=== PATIENT | male | born 1960 ===

== ENCOUNTER 2024-02-15 20:00 | Emergency (ER) | payer OTHER ==
[2024-02-15] MEDS ORDERED: Naloxone 0.4 MG/ML SDV IVPUSH PRN (20:12)
[2024-02-15] MEDS: Ondansetron 4 MG/2 ML SDV IVPUSH ONE (20:18)
[2024-02-15] MEDS: Morphine 2 MG/ML SYRINGE IVPUSH ONE ×2 (20:18→20:38)
[2024-02-15] MEDS: Sodium Chloride 0.9% 10 ML Syringe FLUSH PRN (20:19)
[2024-02-15 20:22] LABS: BASOPHILS ABSOLUTE AUTO 0.04 K/uL (0.00-0.20); BASOPHILS PERCENT AUTO 0.2 % (0.0-2.0); EOSINOPHILS ABSOLUTE AUTO 0.11 K/uL (0.00-0.50); EOSINOPHILS PERCENT AUTO 0.6 % (0.0-5.0); HEMATOCRIT 48.2 % (39.0-49.0); HEMOGLOBIN 16.7 g/dL (13.1-16.8); LYMPHOCYTES ABSOLUTE AUTO 1.91 K/uL (0.50-3.50); LYMPHOCYTES PERCENT AUTO 10.2 % (10.0-50.0); MEAN CORPUSCULAR HGB CONC 34.6 g/dL (31.7-36.0); MEAN CORPUSCULAR VOLUME 83.7 fL (84.0-98.0); MONOCYTES ABSOLUTE AUTO 1.18 K/uL (0.00-1.00); MONOCYTES PERCENT AUTO 6.3 % (2.0-14.0); NEUTROPHILS ABSOLUTE AUTO 15.48 K/uL (1.40-7.00); NEUTROPHILS PERCENT AUTO 82.7 % (45.0-80.0); PLATELET COUNT,PLT 248 K/uL (150-350); RED BLOOD CELL COUNT 5.76 M/uL (4.33-5.41); RED CELL DISTRIBUTION WIDTH 14.8 % (11.2-14.1); WHITE BLOOD CELL COUNT,WBC 18.7 K/uL (4.0-10.2)
[2024-02-15 20:36] LABS: BLOOD UREA NITROGEN,BUN 14 mg/dL (7-18); CHLORIDE,CL 98 mmol/L (98-107); CREATININE 1.17 mg/dL (0.51-1.17); GLUCOSE RANDOM 141 mg/dL (70-99); LIPASE 25 U/L (16-77); POTASSIUM,K 3.6 mmol/L (3.5-5.1); SODIUM,NA 135 mmol/L (136-145)
[2024-02-15 20:36] LABS: APPEARANCE,URINE CLEAR; BILIRUBIN,URINE NEGATIVE (NEGATIVE); COLOR,URINE YELLOW; GLUCOSE,URINE NEGATIVE (NEGATIVE); KETONES,URINE NEGATIVE (NEGATIVE); LEUKOCYTE ESTERASE,URINE TRACE (NEGATIVE); NITRITE,URINE NEGATIVE (NEGATIVE); OCCULT BLOOD,URINE SMALL (NEGATIVE); PROTEIN,URINE NEGATIVE (NEGATIVE); UROBILINOGEN,URINE 0.2 E.U./dL (0.2-1.0)
[2024-02-15 20:42] LABS: ANION GAP 13.6 meq/L (7-15); ESTIMATED GFR 70 mL/min (>=60)
[2024-02-15 20:47] LABS: AMORPHOUS SEDIMENT,URINE MODERATE /HPF (0/HPF); BACTERIA,URINE MODERATE /HPF (NONE TO FEW); EPITHELIAL CELLS,URINE FEW /LPF; MUCUS,URINE FEW /LPF (NEGATIVE); RBC,URINE 0-5 /HPF
[2024-02-15] MEDS: Iopamidol 612 MG/ML 100 ML Bottle IVPUSH ONE (20:58)
[2024-02-15] MEDS: Sodium Chloride 0.9% 1,000 ML IV ONE (21:03)
[2024-02-15] MEDS: Ketorolac 30 MG/ML SDV IVPUSH ONE (21:06)
[2024-02-15] MEDS: HYDROmorphone 0.5 MG/0.5 ML Syringe IVPUSH ONE ×2 (21:18→21:43)
[2024-02-15] MEDS: cefTRIAXone 2 GM Vial IVPUSH ONE (22:19)
[2024-02-15] MEDS: metroNIDAZOLE/Normal Saline 500 MG in Premix Bag 1 BAG IV ONE (22:20)
[2024-02-15] MEDS: Sodium Chloride 0.9% 250 ML IV SCH (22:22)
[2024-02-15] MEDS: Ondansetron 4 MG Tab.DIS PO ONE (22:29)
[2024-02-15] MEDS: Acetaminophen/oxyCODONE 325-5 MG Tab PO ONE (22:29)
[2024-02-15] MEDS: oxyCODONE 5 MG Tab PO ONE (22:30)
== END 2024-02-15 22:55 | disposition home or self-care (01) ==
LOC: LL.ED 20:00 → MERGE 20:00 → EDBD 20:00 → LL.ED 22:55
DX: K35.30 Acute appendicitis with localized peritonitis, without perforation or gangrene (principal); I10 Essential (primary) hypertension; Z79.899 Other long term (current) drug therapy; Z79.82 Long term (current) use of aspirin
CPT/HCPCS: 36415; 74177; 80048; 81001; 83690; 85025; 87086; 96361; 96365; 96375; 99284-25; A9270-GY; J0696; J1170; J1836; J1885; J2270; J2405; J3490; J7030; J7050; Q9967